=== PATIENT | male | born 1940 | race Two or more races ===

== ENCOUNTER → 2018-11-15 | Outpatient (CLI) | payer OTHER, MEDICAID ==
[2016-01-13 18:53] VITALS: BP 138/62
[~2018-11-15] MED LIST: AMOX1TAB10 PO; ESOM40CA PO; FENO134C PO; FENO35TA PO; MV,C1TAB27 PO; OMEG1CAP6 PO
--- NOTE | 2018-11-15 14:40 | RAD ---
Chest, 2 views, 11/15/2018: HISTORY: Chronic cough, bronchitis Comparison is made to a study from 01/13/2016. The heart size is normal. There is mild linear atelectasis or scarring in the right base. No pulmonary consolidation is seen. There is no evidence of pleural fluid. IMPRESSION: Mild right basilar linear atelectasis or scarring. Electronically signed by: Christopher Patterson MD (11/15/2018 2:35 PM) [facility]
== END | disposition home or self-care (01) ==
LOC: RAD 09:49
PROVIDERS: ATTEND Internal Medicine
DX: J40 Bronchitis, not specified as acute or chronic (principal)
CPT/HCPCS: 71046

== ENCOUNTER → 2019-09-19 | Outpatient (CLI) | payer OTHER, MEDICAID ==
[2016-01-13 18:53] VITALS: BP 138/62
[~2019-09-19] MED LIST changes: +IOHEXOL 240 MG/ML 50ML VIAL. PO ONE; +IOHEXOL 300 MG/ML 100ML VIAL. IV ONE
--- NOTE | 2019-09-19 17:32 | RAD ---
EXAM: CT ABDOMEN/PELVIS WITH CONTRAST. HISTORY: Prostate cancer, abdominal pain. TECHNIQUE: Computed tomography of the abdomen and pelvis was performed after the intravenous administration of iodinated contrast. COMPARISON: 12/28/2013. FINDINGS: Lung windows through the visualized portions of the bases reveal mild atelectasis. There are atherosclerotic calcifications along the left circumflex coronary artery. Bone windows reveal no suspicious lesions. Mild hypoattenuation of the hepatic parenchyma is consistent with diffuse hepatic steatosis. Benign right renal cysts measure up to 2.8 cm. The pancreas, spleen, gallbladder and adrenal glands are unremarkable. Mild stranding within the root of the mesentery usually indicates mesenteric panniculitis, an usually incidental finding of no clinical significance. Sigmoid diverticulosis is moderate. The appendix is not inflamed. There is no small bowel obstruction. The prostate is only mildly enlarged for patient age at 4.2 x 2.8 cm. There is no extracapsular extension of a mass. There are no pathologically enlarged lymph nodes. There is mild bladder wall thickening. IMPRESSION: 1. No cause for acute pain is identified. 2. No evidence of metastatic disease. 3. Diffuse bladder wall thickening indicates chronic outlet obstruction or inflammation. Correlate with urinalysis. 4. Suspect mild diffuse hepatic steatosis. *One or more of the following individualized dose reduction techniques were utilized for this examination: 1. Automated exposure control. 2. Adjustment of the mA and/or kV according to patient size. 3. Use of iterative reconstruction technique. Electronically signed by: Marie Arredondo MD (09/19/2019 5:29 PM) [facility]
== END | disposition home or self-care (01) ==
LOC: CT 10:28
PROVIDERS: ATTEND Internal Medicine
DX: C61 Malignant neoplasm of prostate (principal); J98.11 Atelectasis; I25.10 Atherosclerotic heart disease of native coronary artery without angina pectoris; K76.0 Fatty (change of) liver, not elsewhere classified; N28.1 Cyst of kidney, acquired; M79.3 Panniculitis, unspecified; K57.30 Diverticulosis of large intestine without perforation or abscess without bleeding; N40.0 Benign prostatic hyperplasia without lower urinary tract symptoms; I10 Essential (primary) hypertension; E78.5 Hyperlipidemia, unspecified; Z79.84 Long term (current) use of oral hypoglycemic drugs; Z79.899 Other long term (current) drug therapy
CPT/HCPCS: 74177; Q9966; Q9967

== ENCOUNTER → 2020-04-21 | Outpatient (CLI) | payer MEDICARE, MEDICAID ==
[2016-01-13 18:53] VITALS: BP 138/62
[~2020-04-21] MED LIST changes: -IOHEXOL 240 MG/ML 50ML VIAL. PO ONE; -IOHEXOL 300 MG/ML 100ML VIAL. IV ONE
--- NOTE | 2020-04-21 16:31 | KCIC ---
LUMBAR SPINE WO CONTRAST History: Reason: LBP WITH RIGHT SCIATICA / Spl. Instructions: / History: LBP into right leg x 8 mths. NKI. Technique: Multiplanar, multi sequential MR imaging was performed of the lumbar spine. Comparison: None Findings: Minimal grade 1 anterolisthesis L4 on L5. Normal vertebral body height. No fracture. Conus terminates at the normal location. No evidence of nerve root clumping. Sacral Tarlov cyst. L1-L2: No canal or neuroforaminal narrowing. L2-L3: Small disc bulge. No canal or neuroforaminal narrowing. L3-L4: Broad-based disc bulge. Mild facet arthropathy. No canal narrowing. Mild bilateral neural foraminal narrowing. L4-L5: Small disc bulge. Advanced facet arthropathy. No canal or neuroforaminal narrowing. L5-S1: Small disc bulge. Mild facet arthropathy. No canal or neuroforaminal narrowing. Impression: 1. Multilevel lumbar spondylosis most prominent L4-L5. No significant canal or neuroforaminal narrowing. Electronically signed by: Ej Prabhakar DO (04/21/2020 4:28 PM) [id number]
== END | disposition home or self-care (01) ==
LOC: KCIC MRI 14:27
PROVIDERS: ATTEND Internal Medicine
DX: M47.816 Spondylosis without myelopathy or radiculopathy, lumbar region (principal)
CPT/HCPCS: 72148

== ENCOUNTER → 2020-09-23 | Outpatient (CLI) | payer MEDICARE, MEDICAID ==
[2016-01-13 18:53] VITALS: BP 138/62
--- NOTE | 2020-09-23 12:57 | PDOC1 ---
INITIAL PAIN CONSULT DATE OF SERVICE: DOS: DATE: 09/23/20 TIME: 12:51 CHIEF COMPLAINT: Chief Complaint: Low back and right lower extremity pain HISTORY OF PRESENT ILLNESS: 80-year-old male presents history of pain low back right lower extremity for about 1 year not the result of any specific injury or accident he is aware but is getting worse over the past year with walking standing changing positions awaken her from sleep especially 4-5 times a night. Patient reports not effective bowel bladder control but does affect his ability to walk using a cane which she has with him today. Patient reports the pain is in the low back rating the posterior gluteus posterior thigh posterior calf into the foot and ankle and into the sole of foot as well. Patient reports constant sharp stabbing shooting radiating the leg numb in the leg as well intermittent intensity always present worse at night cramping and aching in the low back as well. Patient reports his disability rating 0-10 10 being the worst is a 9 with family home responsibilities recreation social activity and occupational activities as well as life support activities 6 with self-care and 0 with sexual behavior. Patient did have MRI scan dated April 21, 2020 showing multilevel lumbar spondylosis most prominent L45 with small disc bulges broad-based disc bulge L3-4 small disc bulge at L5-S1 as well. Patient reports no loss of motor function but significant fatigability the right lower extremity compared to the left. Patient has been doing chiropractic treatments also doing stretching strength exercises on his own at home daily and walking daily as best he can although it is limiting him significantly on his ability to walk he can usually walk about a good 30 minutes now is more like 10-15 at the most before he has to stop because of the pain. Patient has tried [id number] Advil as well as Tylenol which helps mildly but only by about 10% is only lasting for about 30 minutes. Reports no other complaints PAST MEDICAL HISTORY: PMH: Hearing loss, hypertension, prostate cancer, diverticulosis, gastropathy reflux, arthritis PREVIOUS SURGERIES: Past Surgical Hx: Eye surgery CURRENT MEDICATIONS: Current Meds: Active Scripts Medications Dose Route/Sig Max Daily Dose Days Date Category Complete Multi Tablet (Mv,Ca,Min/Iron Fum/Fa/Lyco/Lut) 1 Each Tablet 1 Each PO 01/06/16 Reported Fish Oil 1,000 Mg Capsule ([place]-3 Fatty Acids/Fish Oil) 1 Each Capsule 1 Each PO 01/06/16 Reported Nexium Capsule (Esomeprazole Magnesium) 40 Mg Capsule.dr 40 Mg PO DAILYAC 01/06/16 Reported Fenofibrate (Fenofibrate,Micronized) 134 Mg Capsule 1 Cap PO DAILY 01/06/16 Reported Fibricor (Fenofibric Acid) 35 Mg Tablet 35 Mg PO 12/28/13 Reported ALLERGIES; Allergies: Coded Allergies: No Known Drug Allergies (Unverified , 01/13/16) FAMILY HISTORY: Family Hx: No major medical problems or conditions that he is aware of. SOCIAL HISTORY: Social Hx: Patient does not take alcohol does not smoke not use any illegal illicit or recreational drugs is lives [facility] and is currently retired REVIEW OF SYSTEMS: ROS: Positive for those items mentioned in history of present illness, all systems are reviewed, otherwise negative, is complete full and well-documented on patient's chart PHYSICAL EXAM: VS: Blood pressure is 142/71 pulse 70 respirations 16 temperature 90.1 F height is 5 feet 9 inches weight is 205 pounds PE: PHYSICAL EXAMINATION: GENERAL: The patient is awake, alert, oriented, appropriate, very pleasant demeanor. Patient accompanied by his son who helps with translation and interpretation. HEENT: Shows normocephalic, atraumatic. Extraocular movements are intact and symmetrical. Oral cavity: Mucous membranes moist and pink. Dentition is intact. NECK: Shows anterior throat supple without palpable lymphadenopathy noted. Swallow reflex symmetrical. CHEST: Shows normal on inspection. Breath sounds are clear bilaterally no rales rhonchi or wheezes auscultated. HEART: Shows S1, S2 clear. No murmurs auscultated. ABDOMEN: Soft, nontender, nondistended, obese. No palpable organomegaly is noted. No rebound or guarding demonstrated. BACK: Shows spine grossly in the midline. Normal-appearing cervical lordotic curvature. There is slightly increased thoracic kyphosis, some minor flattening of the lumbar lordotic curvature. Lumbar paraspinous muscles show symmetrical on inspection, on palpation shows some moderate tenderness diffusely throughout the upper, middle and lower distribution of the paraspinous muscles bilaterally and also into the lower thoracic paraspinous musculature, firm and tender, but without specific trigger points, without radiation of pain. The patient has good rotation of motion of the lumbar spine, both laterally as well as extension and flexion without significant difficulty. No tenderness over the spinous processes, sacrum or sacroiliac regions. EXTREMITIES: Lower extremities show deep tendon reflexes 2+ in the patellar and tendo calcaneus tendons. Motor exam is 4 on a scale of 5 with right dorsiflexion, extension, quadriceps and hamstring flexion and 5/5 on the left. Peripheral pulses are 1+ posterior tibial. No peripheral edema is noted bilaterally. Lower extremities are warm and dry to touch, equal in color and appearance. Straight leg raise noted to be positive on the right about 40 degrees, left side is negative. Gaenslen's and Andre's maneuvers are negative bilaterally as well. The patient is able to stand, stand on his toes without significant difficulty or loss of balance walks with a slight favoring gait does appear to favor the right lower extremity and again using a cane which he has in his right hand with him today. SKIN: Shows warm and dry, good turgor. No edema. No sores, rashes or bruising throughout. IMPRESSION: Impression: 80-year-old male with approximate 1 year history low back and right lower extremity pain and radicular fashion following an L5-S1 dermatomal distribution MRI scan lumbar spine as noted Hypertension Arthritis History of prostate cancer Plan: Options were discussed with the patient and patient's son who accompanied him at his visit today. We discussed continued physical therapies interventional techniques and medication management. Patient would like to pursue interventional techniques we discussed a lumbar epidural steroid injection using description as well as anatomical models to describe the procedure. Patient will wait for preauthorization with insurance provider in the meantime we will continue with stretching strength exercises at home as well as oral analgesics and walking daily and exercising as tolerated. Once preapproved, will have patient return for lumbar epidural steroid injection translaminar approach at the L5-S1 level. LUAN RIVER MD Sep 23, 2020 12:57
== END | disposition home or self-care (01) ==
LOC: PNCL 10:28
PROVIDERS: ATTEND Anesthesiology
DX: M79.661 Pain in right lower leg (principal); M54.5 Low back pain; I10 Essential (primary) hypertension; M19.90 Unspecified osteoarthritis, unspecified site; K21.9 Gastro-esophageal reflux disease without esophagitis; K57.30 Diverticulosis of large intestine without perforation or abscess without bleeding; Z85.46 Personal history of malignant neoplasm of prostate; Z79.899 Other long term (current) drug therapy; Z98.890 Other specified postprocedural states
CPT/HCPCS: G0463

== ENCOUNTER → 2020-10-08 | Outpatient (CLI) | payer MEDICARE, MEDICAID ==
[2016-01-13 18:53] VITALS: BP 138/62
[~2020-10-08] MED LIST changes: +IOHEXOL 180 MG/ML 10 ML VIAL. ONE; +methylPREDNISolone ACETATE 40 MG/ML VIAL. ONE; +methylPREDNISolone ACETATE 80 MG/ML VIAL. ONE
--- NOTE | 2020-10-08 10:36 | PDOC ---
Progress Note - Pain Clinic Date of Service: DOS: DATE: 10/08/20 TIME: 10:33 Diagnosis: Dx: Lumbar radiculopathy with lumbar degenerative disc disease History or Present Illness: HPI: 80-year-old male returns follow-up status post initial evaluation preauthorization for lumbar epidural steroid injection. Patient is obtained this now would like to proceed. Patient returns still pain low back right lower extremity posterior gluteus posterior thigh posterior calf as it was previously. Patient reports no new motor or sensory deficits no new bowel or bladder incontinence patient reports the pain is aching and sharp and constant in the low back right posterior gluteus thigh and lower leg with walking standing changing positions better with sitting or laying down but is waking him from sleep occasionally not every night. Patient rates pain is a 5 on a scale of 10 is worse with past week for an average 3 at its least and a 4 today. Physical Exam: VS: Blood pressure is 142/67 pulse respirations 16 temperature is 98.6 F weight is 206 pounds PE: PHYSICAL EXAMINATION: GENERAL: The patient is awake, alert, oriented, appropriate, very pleasant demeanor HEENT: Shows normocephalic, atraumatic. Extraocular movements are intact and symmetrical. Oral cavity: Mucous membranes moist and pink. NECK: Shows anterior throat supple without palpable lymphadenopathy noted. Swallow reflex symmetrical. CHEST: Shows normal on inspection. Breath sounds are clear bilaterally. HEART: Shows S1, S2 clear. No murmurs auscultated. ABDOMEN: Soft, nontender, nondistended, obese. No palpable organomegaly is noted. No rebound or guarding demonstrated. BACK: Shows spine grossly in the midline. Normal-appearing cervical lordotic curvature. There is slightly increased thoracic kyphosis, some minor flattening of the lumbar lordotic curvature. Lumbar paraspinous muscles show symmetrical on inspection, on palpation shows some moderate tenderness diffusely throughout the upper, middle and lower distribution of the paraspinous muscles, but without specific trigger points, without radiation of pain. The patient has good rotational motion of the lumbar spine, both laterally as well as extension and flexion without significant difficulty. No tenderness over the spinous processes, sacrum or sacroiliac regions. EXTREMITIES: Lower extremities show deep tendon reflexes 2+ in the patellar and tendo calcaneus tendons. Motor exam is 4 on a scale of 5 with right dorsiflexion, extension, quadriceps and hamstring flexion and 5/5 on the left. Peripheral pulses are 1+ posterior tibial. No peripheral edema is noted bilaterally. Lower extremities are warm and dry to touch, equal in color and appearance. SKIN: Shows warm and dry, good turgor. No edema. No sores, rashes or bruising throughout. Procedure: Procedure: Options were discussed with the patient and patient's son who accompanies him at his visit today. We will proceed with a lumbar epidural steroid injection today with fluoroscopic guidance. Risks were discussed including but not limited to: Bleeding, infection, possibility of epidural hematoma and subsequent neurological compromise, dural puncture, headaches, spinal cord and/or nerve damage, side effects of steroid medication, and poor results regarding pain control. Patient understands wished to proceed. Patient will return to the clinic in approximate 2 weeks for follow-up was counseled as to return appointment activity level and side effects to be aware of. Medication Injected: Med Injected: Procedure is lumbar epidural steroid injection under local anesthetic using sterile prep and drape at the L5-S1 level using C-arm fluoroscopic guidance in both AP and lateral views medications injected is 120 mg Depo-Medrol + 10 mL preservative-free normal saline and 2 mL contrast- condition at discharge is stable patient tolerated procedure well had no complications. Condition at Discharge: Condition at Discharge: Condition at discharge is stable, patient tolerated procedure well and had no complications. LUAN RIVER MD Oct 08, 2020 10:36
== END | disposition home or self-care (01) ==
LOC: PNCL 09:54
PROVIDERS: ATTEND Anesthesiology
DX: M51.16 Intervertebral disc disorders with radiculopathy, lumbar region (principal); Z79.899 Other long term (current) drug therapy
CPT/HCPCS: 62323; J1030; J1040; Q9965

== ENCOUNTER → 2020-10-27 | Outpatient (CLI) | payer MEDICARE, MEDICAID ==
[2016-01-13 18:53] VITALS: BP 138/62
[~2020-10-27] MED LIST changes: -IOHEXOL 180 MG/ML 10 ML VIAL. ONE; -methylPREDNISolone ACETATE 40 MG/ML VIAL. ONE; -methylPREDNISolone ACETATE 80 MG/ML VIAL. ONE
--- NOTE | 2020-10-27 10:18 | PDOC ---
Progress Note - Pain Clinic Date of Service: DOS: DATE: 10/27/20 TIME: 10:15 Diagnosis: Dx: Lumbar radiculopathy with lumbar degenerative disc disease History or Present Illness: HPI: 80-year-old male returns follow-up status post lumbar epidurals injection x1. Patient reports about 65% improvement in the low back and the right lower extremity specially patient ports the leg is almost completely resolved with pain but the still radiating in the posterior gluteus and posterior thigh on the right side with walking and standing patient reports is much better sitting or laying down he is sleeping much better does not awaken him from sleep currently as it did previously. Patient reports his pain is a form scale 10 at all times average worst and least over the past week is a 4 today patient ports aching sometimes sharp but mostly just in the low back into the right posterior gluteus rating the posterior thigh on the right side. Patient reports no new motor or sensory deficits no new bowel or bladder incontinence or other complaints. Physical Exam: VS: Blood pressure is 148/68 pulse 77 respirations 18 temperature 90.2 F height is 5 feet 9 inches weight is 208 pounds PE: PHYSICAL EXAMINATION: GENERAL: The patient is awake, alert, oriented, appropriate, very pleasant demeanor patient accompanied by his son HEENT: Shows normocephalic, atraumatic. Extraocular movements are intact and symmetrical. Oral cavity: Mucous membranes moist and pink. Dentition is intact. NECK: Shows anterior throat supple without palpable lymphadenopathy noted. Swallow reflex symmetrical. CHEST: Shows normal on inspection. Breath sounds are clear bilaterally, no rales or rhonchi. HEART: Shows S1, S2 clear. No murmurs auscultated. ABDOMEN: Soft, nontender, nondistended, obese. No palpable organomegaly is noted. No rebound or guarding demonstrated. BACK: Shows spine grossly in the midline. Normal-appearing cervical lordotic curvature. There is slightly increased thoracic kyphosis, some minor flattening of the lumbar lordotic curvature. Lumbar paraspinous muscles show symmetrical on inspection, on palpation shows some moderate tenderness diffusely throughout the upper, middle and lower distribution of the paraspinous muscles without specific trigger points, without radiation of pain. The patient has good rotational motion of the lumbar spine, both laterally as well as extension and flexion without significant difficulty. No tenderness over the spinous processes, sacrum or sacroiliac regions. EXTREMITIES: Lower extremities show deep tendon reflexes 2+ in the patellar and tendo calcaneus tendons. Motor exam is 4 on a scale of 5 with right dorsiflexion, extension, quadriceps and hamstring flexion and 5/5 on the left. Peripheral pulses are 1 posterior tibial. No peripheral edema is noted bilaterally. Lower extremities are warm and dry to touch, equal in color and appearance. SKIN: Shows warm and dry, good turgor. No edema. No sores, rashes or bruising throughout. Procedure: Procedure: Options were discussed with the patient. Patient chart was reviewed his current medication regimen updated current review of systems updated today as well. We will preauthorize patient for a second lumbar epidural steroid injections did very well after the first with about 60% improvement and still clinical radiculopathy in an L5-S1 dermatomal distribution on the right. Patient will continue with stretching 3 exercises walking daily as tolerated as well. Once preauthorized to have patient return for a translaminar approach L5-S1 level lumbar epidural steroid injection. Medication Injected: Med Injected: None Condition at Discharge: Condition at Discharge: Condition at discharge is stable. LUAN RIVER MD Oct 27, 2020 10:18
== END | disposition home or self-care (01) ==
LOC: PNCL 09:35
PROVIDERS: ATTEND Anesthesiology
DX: M51.16 Intervertebral disc disorders with radiculopathy, lumbar region (principal); Z98.890 Other specified postprocedural states
CPT/HCPCS: G0463

== ENCOUNTER → 2020-11-10 | Outpatient (CLI) | payer MEDICARE, MEDICAID ==
[2016-01-13 18:53] VITALS: BP 138/62
[~2020-11-10] MED LIST changes: +AZIT1PAC9 PO; +BENZ100C PO; +IOHEXOL 180 MG/ML 10 ML VIAL. ONE; +methylPREDNISolone ACETATE 40 MG/ML VIAL. ONE; +methylPREDNISolone ACETATE 80 MG/ML VIAL. ONE
--- NOTE | 2020-11-10 10:47 | PDOC ---
Progress Note - Pain Clinic Date of Service: DOS: DATE: 11/10/20 TIME: 10:44 Diagnosis: Dx: Lumbar radiculopathy with lumbar degenerative disc disease History or Present Illness: HPI: 80-year-old male returns follow-up status post lumbar epidural steroid injection x1. Patient had done very well after the first injection and was waiting for preauthorization for his second injection has obtained that now would like to proceed. Patient ports pain low back right lower extremity as it has been in the posterior gluteus posterior thigh posterior calf on the right side with walking standing changing positions. Patient reports is a 5 on a scale of 10 is worse over the past week for an average for its least is a 4 today. Patient ports is aching and shooting at times on and off in intensity worse with walking standing better with sitting or laying down initially doing much better with distance walking doing household activities and traveling with greater ease and comfort. Patient reports no new motor or sensory deficits no new bowel or bladder incontinence or other complaints. Physical Exam: VS: Blood pressure is 142/78 pulse 90 respirations 18 temperature 98.1 F height is 5 foot 9 inches weight is 203 pounds PE: PHYSICAL EXAMINATION: GENERAL: The patient is awake, alert, oriented, appropriate, very pleasant demeanor HEENT: Shows normocephalic, atraumatic. Extraocular movements are intact and symmetrical. Patient wearing eyeglasses. Oral cavity: Mucous membranes moist and pink. NECK: Shows anterior throat supple without palpable lymphadenopathy noted. Swallow reflex symmetrical. CHEST: Shows normal on inspection. Breath sounds are clear bilaterally. HEART: Shows S1, S2 clear. No murmurs auscultated. ABDOMEN: Soft, nontender, nondistended. No palpable organomegaly is noted. No rebound or guarding demonstrated. BACK: Shows spine grossly in the midline. Normal-appearing cervical lordotic curvature. There is slightly increased thoracic kyphosis, some minor flattening of the lumbar lordotic curvature. Lumbar paraspinous muscles show symmetrical on inspection, on palpation shows some moderate tenderness diffusely throughout the upper, middle and lower distribution of the paraspinous muscles without specific trigger points, without radiation of pain. The patient has good rotational motion of the lumbar spine, both laterally as well as extension and flexion without significant difficulty. No tenderness over the spinous processes, sacrum or sacroiliac regions. EXTREMITIES: Lower extremities show deep tendon reflexes 2+ in the patellar and tendo calcaneus tendons. Motor exam is 4 on a scale of 5 with right dorsiflexion, extension, quadriceps and hamstring flexion and 5/5 on the left. Peripheral pulses are 1+ posterior tibial. No peripheral edema is noted bilaterally. Lower extremities are warm and dry to touch, equal in color and appearance. SKIN: Shows warm and dry, good turgor. No edema. No sores, rashes or bruising throughout. Procedure: Procedure: Options were discussed with the patient patient's son who accompanied him his visit today. We will proceed with a second lumbar epidural steroid injection today with fluoroscopic guidance. Risks were discussed including but not limited to: Bleeding, infection, possibility of epidural hematoma and subsequent neurological compromise, dural puncture, headaches, spinal cord and/or nerve damage, side effects of steroid medication, and poor results regarding pain control. Patient understands wished to proceed. Patient will return to clinic in approximate 2 weeks for follow-up, was counseled as return appointment activity level, and side effects to be aware of. Medication Injected: Med Injected: Procedure is lumbar epidural steroid injection under local anesthetic using sterile prep and drape at the L5-S1 level using C-arm fluoroscopic guidance in both AP and lateral views medications injected is 120 mg Depo-Medrol + 10 mL preservative-free normal saline and 2 mL contrast- condition at discharge is stable patient tolerated procedure well had no complications. Condition at Discharge: Condition at Discharge: Condition at discharge stable, patient tolerated procedure well and had no compl ications. LUAN RIVER MD Nov 10, 2020 10:47
== END | disposition home or self-care (01) ==
LOC: PNCL 10:06
PROVIDERS: ATTEND Anesthesiology
DX: M51.16 Intervertebral disc disorders with radiculopathy, lumbar region (principal); Z79.899 Other long term (current) drug therapy; Z98.890 Other specified postprocedural states
CPT/HCPCS: 62323; J1030; J1040; Q9965

== ENCOUNTER → 2020-11-24 | Outpatient (CLI) | payer MEDICARE, MEDICAID ==
[2016-01-13 18:53] VITALS: BP 138/62
[~2020-11-24] MED LIST changes: -AZIT1PAC9 PO; -BENZ100C PO; -IOHEXOL 180 MG/ML 10 ML VIAL. ONE; -methylPREDNISolone ACETATE 40 MG/ML VIAL. ONE; -methylPREDNISolone ACETATE 80 MG/ML VIAL. ONE
--- NOTE | 2020-11-24 10:29 | PDOC ---
Progress Note - Pain Clinic Date of Service: DOS: DATE: 11/24/20 TIME: 10:26 Diagnosis: Dx: Lumbar radiculopathy with lumbar degenerative disc disease History or Present Illness: HPI: 80-year-old male returns follow-up status post lumbar epidural steroid injection x2. Patient reports about 70% improvement after last injection pain low back and right leg doing much better. Patient reports he been increasing his activity with daily walking, increasing activities at home as well as traveling with greater ease and comfort. Patient reports when he sitting or laying down is generally pain-free when he standing walking the pain is still in the low back and the right lower extremity mostly in the posterior gluteus posterior lateral thigh posterior thigh as well. Patient reports no new motor or sensory deficits no new bowel or bladder incontinence reports his pain as 5 on a scale of 10 is worse over the past week for an average for its least is a 4 today. Patient describes pain as aching sometimes sharp in the right low back and the leg. Patient reports no new changes. Physical Exam: VS: Blood pressure is 167/79 pulse 93 respirations 18 temperature 98.4 F height is 5 feet 9 inches weight is 202 pounds PE: PHYSICAL EXAMINATION: GENERAL: The patient is awake, alert, oriented, appropriate, very pleasant demeanor, patient accompanied by his son. HEENT: Shows normocephalic, atraumatic. Extraocular movements are intact and symmetrical. Oral cavity: Mucous membranes moist and pink. NECK: Shows anterior throat supple without palpable lymphadenopathy noted. Swallow reflex symmetrical. CHEST: Shows normal on inspection. Breath sounds are clear bilaterally, no rales or rhonchi. HEART: Shows S1, S2 clear. No murmurs auscultated. ABDOMEN: Soft, nontender, nondistended, obese. No palpable organomegaly is noted. BACK: Shows spine grossly in the midline. Normal-appearing cervical lordotic curvature. There is increased thoracic kyphosis, some flattening of the lumbar lordotic curvature. Lumbar paraspinous muscles show symmetrical on inspection, on palpation shows some moderate tenderness diffusely throughout the upper, middle and lower distribution of the paraspinous muscles without specific trigger points, without radiation of pain. The patient has good rotational motion of the lumbar spine, both laterally as well as extension and flexion without significant difficulty. No tenderness over the spinous processes, sacrum or sacroiliac regions. EXTREMITIES: Lower extremities show deep tendon reflexes 2+ in the patellar and tendo calcaneus tendons. Motor exam is 4 on a scale of 5 with right dorsiflexion, extension, quadriceps and hamstring flexion and 5/5 on the left. Peripheral pulses are 1+ posterior tibial. No peripheral edema is noted bilaterally. Lower extremities are warm and dry to touch, equal in color and appearance. SKIN: Shows warm and dry, good turgor. No edema. No sores, rashes or bruising throughout. Procedure: Procedure: Options were discussed with the patient. Patient chart reviewed his current medication regimen updated current review of systems updated today as well. As patient is doing much better after his last injection we will preauthorize for third lumbar epidural steroid injection as patient is 70% improved with still some radicular pain in the right lower extremity and L5-S1 dermatomal distribution. Patient continue with stretching strength exercises daily walking and heat massage therapies to the back as well as he is currently doing. Patient return to the clinic after preauthorization and we will plan on translaminar L5-S1 lumbar epidural steroid injection at that time. Medication Injected: Med Injected: None Condition at Discharge: Condition at Discharge: Condition at discharge is stable. LUAN RIVER MD Nov 24, 2020 10:29
== END | disposition home or self-care (01) ==
LOC: PNCL 10:10
PROVIDERS: ATTEND Anesthesiology
DX: M51.16 Intervertebral disc disorders with radiculopathy, lumbar region (principal); Z79.899 Other long term (current) drug therapy; M79.604 Pain in right leg
CPT/HCPCS: G0463

== ENCOUNTER → 2020-12-08 | Outpatient (CLI) | payer MEDICARE, MEDICAID ==
[2016-01-13 18:53] VITALS: BP 138/62
[~2020-12-08] MED LIST changes: +AZIT1PAC9 PO; +BENZ100C PO; +IOHEXOL 180 MG/ML 10 ML VIAL. ONE; +methylPREDNISolone ACETATE 40 MG/ML VIAL. ONE; +methylPREDNISolone ACETATE 80 MG/ML VIAL. ONE
--- NOTE | 2020-12-08 10:10 | PDOC ---
Progress Note - Pain Clinic Date of Service: DOS: DATE: 12/08/20 TIME: 10:07 Diagnosis: Dx: Lumbar radiculopathy with lumbar degenerative disc disease History or Present Illness: HPI: 80-year-old male returns for follow-up status post lumbar epidural steroid action x2. Patient reports about 85% improvement still some pain the low back and right lower extremity in the posterior gluteus posterior thigh posterior calf much better than it was patient reports is more noticeable with walking standing much better with sitting or laying down is been sleeping well at night generally does not awaken him from sleep at night patient reports his pain is a 4 on a scale of 10 is worse over the past week for an average 3 at its least is a 4 today. Patient ports aching and sharp at times on and off in intensity in the right leg and low back only. Patient reports no new motor or sensory deficits no new bowel or bladder incontinence or other complaints. Physical Exam: VS: Blood pressure is 144/75 pulse 81 respirations 16 temperature is 98.4 F weight is 206 pounds PE: PHYSICAL EXAMINATION: GENERAL: The patient is awake, alert, oriented, appropriate, very pleasant demeanor HEENT: Shows normocephalic, atraumatic. Extraocular movements are intact and symmetrical. NECK: Shows anterior throat supple without palpable lymphadenopathy noted. Swallow reflex symmetrical. CHEST: Shows normal on inspection. Breath sounds are clear bilaterally. HEART: Shows S1, S2 clear. No murmurs auscultated. ABDOMEN: Soft, nontender, nondistended, obese. No palpable organomegaly is noted. No rebound or guarding demonstrated. BACK: Shows spine grossly in the midline. Normal-appearing cervical lordotic curvature. There is increased thoracic kyphosis, some minor flattening of the lumbar lordotic curvature. Lumbar paraspinous muscles show symmetrical on inspection, on palpation shows some moderate tenderness diffusely throughout the upper, middle and lower distribution of the paraspinous muscles bilaterally, without specific trigger points, without radiation of pain. The patient has good rotational motion of the lumbar spine, both laterally as well as extension and flexion without significant difficulty. EXTREMITIES: Lower extremities show deep tendon reflexes 2+ in the patellar and tendo calcaneus tendons. Motor exam is 4 on a scale of 5 with right dorsiflexion, extension, quadriceps and hamstring flexion and 5/5 on the left. Peripheral pulses are 1+ posterior tibial. No peripheral edema is noted bilaterally. Lower extremities are warm and dry to touch, equal in color and appearance. SKIN: Shows warm and dry, good turgor. No edema. No sores, rashes or bruising throughout. Procedure: Procedure: Options were discussed with the patient. Patient will chart reviews his current medication regimen updated current review of systems updated today as well. We will proceed with a third in the series lumbar epidural steroid traction today with fluoroscopic guidance. Risks were discussed including but not limited to: Bleeding, infection, possibility of epidural hematoma and subsequent neurological compromise, dural puncture, headaches, spinal cord and/or nerve damage, side effects of steroid medication, and poor results regarding pain control. Patient understands and wished to proceed. Patient return to clinic in approximate 2 weeks for follow-up, was counseled as return appointment activity level, and side effects to be aware of. Medication Injected: Med Injected: Procedure is lumbar epidural steroid injection under local anesthetic using sterile prep and drape at the L5-S1 level using C-arm fluoroscopic guidance in both AP and lateral views medications injected is 120 mg Depo-Medrol + 10 mL preservative-free normal saline and 2 mL contrast- condition at discharge is stable patient tolerated procedure well had no complications. Condition at Discharge: Condition at Discharge: Condition at discharge is stable, patient tolerated procedure well and had no complications. LUAN RIVER MD Dec 08, 2020 10:10
--- NOTE | 2020-12-08 10:10 | PDOC4 ---
PROCEDURE Procedure Patient was consented for lumbar epidural steroid injection. Risks were dis cussed including but not limited to: Bleeding, infection, possibility of epidural hematoma and subsequent neurological compromise, dural puncture, headaches, spinal cord and/or nerve damage, side effects of steroid medication, and poor results regarding pain control. Patient understands and wished to proceed. Procedure is lumbar epidural steroid injection under local anesthetic using sterile prep and drape at the L5-S1 level using C-arm fluoroscopic guidance in both AP and lateral views medications injected is 120 mg Depo-Medrol + 10 mL preservative-free normal saline and 2 mL contrast- condition at discharge is stable patient tolerated procedure well had no complications. LUAN RIVER MD Dec 08, 2020 10:10
== END | disposition home or self-care (01) ==
LOC: PNCL 09:40
PROVIDERS: ATTEND Anesthesiology
DX: M51.16 Intervertebral disc disorders with radiculopathy, lumbar region (principal); Z79.899 Other long term (current) drug therapy; Z98.890 Other specified postprocedural states
CPT/HCPCS: 62323; J1030; J1040; Q9965

== ENCOUNTER 2021-02-14 16:29 | Emergency (ER) | payer MEDICARE, MEDICAID ==
[~2021-02-14] VITALS: Ht 175.3 cm; Wt 93.1 kg
[~2021-02-14 16:29] MED LIST changes: -AZIT1PAC9 PO; -BENZ100C PO; -IOHEXOL 180 MG/ML 10 ML VIAL. ONE; -methylPREDNISolone ACETATE 40 MG/ML VIAL. ONE; -methylPREDNISolone ACETATE 80 MG/ML VIAL. ONE
--- NOTE | 2021-02-14 19:28 | RAD ---
Exam: Chest one view INDICATION: Shortness of breath TECHNIQUE: Frontal view of the chest Comparisons: 11/15/2018 FINDINGS: The cardiomediastinal silhouette and pulmonary vessels are within normal limits. The lung and pleural spaces are clear. IMPRESSION: No acute cardiopulmonary process. Electronically signed by: Herrera Reid MD (02/14/2021 7:25 PM) [facility]
[2021-02-14 19:38] LABS: BASO # 0.1 x10^3/uL (0.0-0.2); BASO % 2 % (0-3); EOS # 0.3 x10^3/uL (0.0-0.7); EOS % 3 % (0-3); HEMATOCRIT 35.6 % (39.0-53.0); HEMOGLOBIN 12.1 g/dL (13.0-17.5); LYMPH # 2.4 x10^3/uL (1.0-4.8); LYMPH % 26 % (24-48); MEAN CORPUSCULAR HEMOGLOBIN 31 pg (25-35); MEAN CORPUSCULAR HGB CONC 34 g/dL (31-37); MEAN CORPUSCULAR VOLUME 92 fL (79-100); MONO # 0.5 x10^3/uL (0.0-1.1); MONO % 5 % (0-9); NEUT # 6.2 x10^3/uL (1.8-7.7); NEUT % 65 % (31-73); PLATELET COUNT 311 x10^3/uL (140-400); RED BLOOD COUNT 3.88 x10^6/uL (4.30-5.70); RED CELL DISTRIBUTION WIDTH 14.7 % (11.5-14.5); WHITE BLOOD COUNT 9.5 x10^3/uL (4.0-11.0)
[2021-02-14 19:38] LABS: BILIRUBIN,URINE NEGATIVE (NEG); CLARITY,URINE CLEAR; COLOR,URINE YELLOW; NITRITE,URINE NEGATIVE (NEG); PH,URINE 6.5 (<5.0-8.0); PROTEIN,URINE NEGATIVE (NEG-TRACE); UROBILINOGEN,URINE 0.2 mg/dL (0.2 mg/dL)
[2021-02-14 19:48] LABS: CREATININE 0.8 mg/dL (0.7-1.3); GFR 93.5; POTASSIUM 4.2 mmol/L (3.5-5.1)
[2021-02-14 19:54] LABS: ALBUMIN 3.3 g/dL (3.4-5.0); ALBUMIN/GLOBULIN RATIO 0.8 (1.0-1.7); TOTAL BILIRUBIN 0.1 mg/dL (0.2-1.0); TOTAL PROTEIN 7.7 g/dL (6.4-8.2)
[2021-02-14 20:01] LABS: BACTERIA,URINE 0 /HPF (0-FEW)
--- NOTE | 2021-02-14 20:49 | PHYS DOC ---
Past Medical History Past Medical History: Cancer, GERD, High Cholesterol, Other Additional Past Medical Histor: prostate cancer Past Surgical History: No Surgical History Smoking Status: Never Smoker Alcohol Use: None Drug Use: None Adult General Chief Complaint Chief Complaint: SHORTNESS OF BREATH HPI HPI Patient is a 80 year old male with PMH of HLD, GERD presenting ot the ER for new onset of SOB. Pt states that over the last 2 weeks has been developing mild intermittent nonproductive cough. However feel that this is worsened over the last 2 days and family noted that when the patient was attempting to drive home today he had a coughing fit that interrupted his ability to breathe and they were concerned that he was having a choking episode. Patient does state over the last 2 days also developed production of yellow sputum. Denies any fever, chills, chest pain, dizziness or lightheadedness Review of Systems Review of Systems Constitutional: Denies fever or chills [] Eyes: Denies change in visual acuity, redness, or eye pain [] HENT: Denies nasal congestion or sore throat [] Respiratory: Denies cough or shortness of breath [] Cardiovascular: No additional information not addressed in HPI [] GI: Denies abdominal pain, nausea, vomiting, bloody stools or diarrhea [] : Denies dysuria or hematuria [] Musculoskeletal: Denies back pain or joint pain [] Integument: Denies rash or skin lesions [] Neurologic: Denies headache, focal weakness or sensory changes [] Endocrine: Denies polyuria or polydipsia [] All other systems were reviewed and found to be within normal limits, except as documented in this note. Allergies Allergies Allergies Coded Allergies Type Severity Reaction Last Updated Verified No Known Drug Allergies 01/13/16 No Physical Exam Physical Exam Constitutional: Well developed, well nourished, no acute distress, non-toxic appearance. [] HENT: Normocephalic, atraumatic, bilateral external ears normal, oropharynx moist, no oral exudates, nose normal. [] Eyes: PERRLA, EOMI, conjunctiva normal, no discharge. [] Neck: Normal range of motion, no tenderness, supple, no stridor. [] Cardiovascular:Heart rate regular rhythm, no murmur [] Lungs & Thorax: Bilateral breath sounds clear to auscultation [] Abdomen: Bowel sounds normal, soft, no tenderness, no masses, no pulsatile masses. [] Skin: Warm, dry, no erythema, no rash. [] Back: No tenderness, no CVA tenderness. [] Extremities: No tenderness, no cyanosis, no clubbing, ROM intact, no edema. [] Neurologic: Alert and oriented X 3, normal motor function, normal sensory f unction, no focal deficits noted. [] Psychologic: Affect normal, judgement normal, mood normal. [] Current Patient Data Vital Signs Vital Signs Date Time Temp Pulse Resp B/P (MAP) Pulse Ox O2 Delivery O2 Flow Rate FiO2 02/14/21 18:22 97.4 110 157/64 (95) 97 97.4 02/14/21 18:02 24 Room Air Lab Values Laboratory Tests Test 02/14/21 19:19 02/14/21 19:24 02/14/21 21:37 White Blood Count 9.5 x10^3/uL (4.0-11.0) Red Blood Count 3.88 x10^6/uL (4.30-5.70) L Hemoglobin 12.1 g/dL (13.0-17.5) L Hematocrit 35.6 % (39.0-53.0) L Mean Corpuscular Volume 92 fL (79-100) Mean Corpuscular Hemoglobin 31 pg (25-35) Mean Corpuscular Hemoglobin Concent 34 g/dL (31-37) Red Cell Distribution Width 14.7 % (11.5-14.5) H Platelet Count 311 x10^3/uL (140-400) Neutrophils (%) (Auto) 65 % (31-73) Lymphocytes (%) (Auto) 26 % (24-48) Monocytes (%) (Auto) 5 % (0-9) Eosinophils (%) (Auto) 3 % (0-3) Basophils (%) (Auto) 2 % (0-3) Neutrophils # (Auto) 6.2 x10^3/uL (1.8-7.7) Lymphocytes # (Auto) 2.4 x10^3/uL (1.0-4.8) Monocytes # (Auto) 0.5 x10^3/uL (0.0-1.1) Eosinophils # (Auto) 0.3 x10^3/uL (0.0-0.7) Basophils # (Auto) 0.1 x10^3/uL (0.0-0.2) Sodium Level 138 mmol/L (136-145) Potassium Level 4.2 mmol/L (3.5-5.1) Chloride Level 102 mmol/L (98-107) Carbon Dioxide Level 28 mmol/L (21-32) Anion Gap 8 (6-14) Blood Urea Nitrogen 14 mg/dL (8-26) Creatinine 0.8 mg/dL (0.7-1.3) Estimated GFR (Cockcroft-Gault) 93.5 BUN/Creatinine Ratio 18 (6-20) Glucose Level 128 mg/dL (70-99) H Calcium Level 9.0 mg/dL (8.5-10.1) Total Bilirubin 0.1 mg/dL (0.2-1.0) L Aspartate Amino Transferase (AST) 27 U/L (15-37) Alanine Aminotransferase (ALT) 21 U/L (16-63) Alkaline Phosphatase 112 U/L (46-116) Creatine Kinase 128 U/L (39-308) Troponin I Quantitative < 0.017 ng/mL (0.000-0.055) FN-Lgu-Q-Type Natriuretic Peptide 32 pg/mL (0-449) Total Protein 7.7 g/dL (6.4-8.2) Albumin 3.3 g/dL (3.4-5.0) L Albumin/Globulin Ratio 0.8 (1.0-1.7) L Urine Collection Type Unknown Urine Color Yellow Urine Clarity Clear Urine pH 6.5 (<5.0-8.0) Urine Specific [place] <=1.005 (1.000-1.030) Urine Protein Negative mg/dL (NEG-TRACE) Urine Glucose (UA) Negative mg/dL (NEG) Urine Ketones (Stick) Negative mg/dL (NEG) Urine Blood Negative (NEG) Urine Nitrite Negative (NEG) Urine Bilirubin Negative (NEG) Urine Urobilinogen Dipstick 0.2 mg/dL (0.2 mg/dL) Urine Leukocyte Esterase Negative (NEG) Urine RBC 1-2 /HPF (0-2) Urine WBC 1-4 /HPF (0-4) Urine Squamous Epithelial Cells Occ /LPF Urine Bacteria 0 /HPF (0-FEW) Influenza Type A Antigen Negative (NEGATIVE) Influenza Type B Antigen Negative (NEGATIVE) Laboratory Tests 4/17/21 19:19 Laboratory Tests 02/14/21 19:19 EKG EKG [] Radiology/Procedures Radiology/Procedures Exam: Chest one view INDICATION: Shortness of breath TECHNIQUE: Frontal view of the chest Comparisons: 11/15/2018 FINDINGS: The cardiomediastinal silhouette and pulmonary vessels are within normal limits. The lung and pleural spaces are clear. IMPRESSION: No acute cardiopulmonary process. Electronically signed by: Herrera Reid MD (02/14/2021 7:25 PM) [facility] Course & Med Decision Making Course & Med Decision Making Pertinent Labs and Imaging studies reviewed. (See chart for details) 80M with reported single episode of coughing fit and worsening cough over the last few days. No evidence of chest pain. Will obtain basic labs and a chest x-ray to make sure there is no significant underlying pneumonia. Dragon Disclaimer Dragon Disclaimer This electronic medical record was generated, in whole or in part, using a voice recognition dictation system. Departure Departure Impression: Primary Impression: Viral syndrome Disposition: 07 LEFT AWOL/ELOPED Condition: GOOD Referrals: BLANK CATALAN MD (PCP) Patient Instructions: Cough, Adult Additional Instructions: EMERGENCY DEPARTMENT GENERAL DISCHARGE INSTRUCTIONS Thank you for coming to [facility] Emergency Department (ED) today and trusting us with you care. We trust that you had a positive experience in our Emergency Department. If you wish to speak to the department management, you may call the Director at [phone]. YOUR FOLLOW UP INSTRUCTIONS ARE FOLLOWS: 1. Do you have a private Doctor? If you do not have a private doctor, please ask for a resource list of physicians or clinics that may be able to assist you with follow up care. 2. The Emergency Physicain has interpreted your x-rays. The X-Ray specialist will also review them. If there is a change in the findings, you will be notified in 48 hours when at all possible. 3. A lab test or culture has been done, your results will be reviewed and you will be notified if you need a change in treatment. ADDITIONAL INSTRUCTIONS AND INFORMATION: 1. Your care today has been supervised by a physician who is specially trained in emergency care. Many problems require more than one evaluation for a complete diagnosis and treatment. We recommend that you schedule your follow up appointment as recommended to ensure complete treatment of you illness or injury. If you are unable to obtain follow up care and continue to have a problem, or if your condition worsens, we recommend that you return to the ED. 2. We are not able to safely determine your condition over the phone nor are we able to give sound medical advice over the phone. For these safety reasons, if you call for medical advice we will ask you to come to the ED for further evaluation. 3. If you have any questions regarding these discharge instructions please call the ED at [phone]. SAFETY INFORMATION: In the interest of safety, wellness, and injury prevention; we encourage you to wear your sealbelt, if you smoke; quite smoking, and we encourage family to use a protective helmet for bicycling and other sporting events that present an increased risk for head injury. IF YOUR SYMPTOMS WORSEN OR NEW SYMPTOMS DEVELOP, OR YOU HAVE CONCERNS ABOUT YOUR CONDITION; OR IF YOUR CONDITION WORSENS WHILE YOU ARE WAITING FOR YOUR FOLLOW UP APPOINTMENT; EITHER CONTACT YOUR PRIMARY CARE DOCTOR, THE PHYSICIAN WHOSE NAME AND NUMBER YOU WERE GIVEN, OR RETURN TO THE ED IMMEDIATELY. Scripts Azithromycin (AZITHROMYCIN PACKET) 1 Gm Packet 1 PACKET PO ONCE for 1 Day, #1 PACKET 0 Refills dissolve in 2 ounces of water Prov: KALLI SILVA MD 02/14/21 Benzonatate (TESSALON PERLE) 100 Mg Capsule 1 CAP PO TID, #21 CAP Prov: KALLI SILVA MD 02/14/21 KALLI SILVA MD Feb 14, 2021 20:49
--- NOTE | 2021-02-14 21:20 | EKG ---
[facility] [address] [place] [address] Test Date: 2021-02-14 Test Time: 18:31:33 Pat Name: EDNA LEDESMA Department: Room: Gender: M Special Events Manager: : 1940 Requested By: KALLI SILVA Order Number: [id number] Reading MD: Measurements Intervals Sylvia Rate: 94 P: 17 UT: 160 QRS: -54 QRSD: 146 T: 38 QT: 374 QTc: 468 Interpretive Statements SINUS RHYTHM ABNORMAL LEFT AXIS DEVIATION LEFT ANTERIOR FASCICULAR BLOCK RIGHT BUNDLE BRANCH BLOCK BIFASCICULAR BLOCK RVH WITH REPOLARIZATION ABNORMALITY ABNORMAL ECG RI6.01 No previous ECG available for comparison
[2021-02-14 22:00] VITALS: BP 147/66
[2021-02-14 22:01] LABS: INFLUENZA A PATIENT NEGATIVE (NEGATIVE); INFLUENZA B PATIENT NEGATIVE (NEGATIVE)
[2021-02-14] MEDS ORDERED: AZIT1PAC9 PO (22:22)
[2021-02-14] MEDS ORDERED: BENZ100C PO (22:22)
[2021-02-14] MEDS ORDERED: AZITHROMYCIN 250 MG TABLET. PO ONE (23:15)
[2021-02-14] MEDS ORDERED: BENZONATATE 100 MG CAPSULE. PO ONE (23:15)
== END 2021-02-14 23:42 | disposition home or self-care (01) ==
LOC: ER 16:29
DX: B34.9 Viral infection, unspecified (principal); R05 Cough; R06.02 Shortness of breath; K21.9 Gastro-esophageal reflux disease without esophagitis; E78.00 Pure hypercholesterolemia, unspecified; Z85.3 Personal history of malignant neoplasm of breast
CPT/HCPCS: 36415; 71045; 80053; 81001; 82550; 83880; 84484; 85025; 87804; 93005; 99285